=== PATIENT | male | born 2000 | race Caucasian/White ===

== ENCOUNTER 2025-07-25 07:37 | Emergency (ER) | payer BC ==
[2025-07-25 07:58] LABS: BASOPHILS ABSOLUTE AUTO 0.08 10^3/uL (0.00-0.50); BASOPHILS PERCENT AUTO 0.6 % (0-1); EOSINOPHILS ABSOLUTE AUTO 1.55 10^3/uL (0.00-1.50); EOSINOPHILS PERCENT AUTO 11.9 % (0-6); IMMATURE GRAN ABSOLUTE AUTO 0.02 10^3/uL (0.00-0.49); IMMATURE GRAN PERCENT AUTO 0.2 % (0.0-4.9); LYMPHOCYTES ABSOLUTE AUTO 2.33 10^3/uL (0.60-5.00); LYMPHOCYTES PERCENT AUTO 17.9 % (24-44); MONOCYTES ABSOLUTE AUTO 1.45 10^3/uL (0.00-1.50); MONOCYTES PERCENT AUTO 11.2 % (0-10); NEUTROPHILS ABSOLUTE AUTO 7.57 x10^3/uL (1.80-8.00); NEUTROPHILS PERCENT AUTO 58.2 % (41-71); PLATELET COUNT,PLT 276 10^3/uL (150-400); RED BLOOD CELL COUNT 5.69 x10^6/uL (4.50-6.00); WHITE BLOOD CELL COUNT,WBC 13.0 10^3/uL (4.0-11.0)
[2025-07-25 08:12] LABS: ALANINE AMINOTRANSFERASE,ALT 19 U/L (12-78); ASPARTATE AMNIOTRANSFERASE,AST 10 U/L (15-37); BILIRUBIN TOTAL 0.8 mg/dL (0.0-1.0); BLOOD UREA NITROGEN,BUN 17 mg/dL (7-18); CARBON DIOXIDE,CO2 29 mmol/L (21-32); CHLORIDE,CL 103 mEq/L (98-106); CREATININE 0.9 mg/dL (0.7-1.3); ESTIMATED GFR 120 mL/min (>=60); GLUCOSE RANDOM 105 mg/dL (75-99); POTASSIUM,K 4.0 mEq/L (3.5-5.0); PROTEIN TOTAL,TP 7.6 g/dL (6.4-8.2); SODIUM,NA 141 mEq/L (136-145)
[2025-07-25] MEDS: Take Home: Azithromycin 250 MG, 2 Tab Pack PO ONE (08:39)
[2025-07-25] MEDS: Take Home: predniSONE 20 MG, 4 Tab Pack PO ONE (08:39)
== END 2025-07-25 08:55 | disposition home or self-care (01) ==
LOC: EDSEX 07:37 → CC.ED 07:37
DX: J20.9 Acute bronchitis, unspecified (principal)
CPT/HCPCS: 36415; 71046; 80053; 85025; 86140; 87428-QW; 94640; 99283; 99285; A9270-GY